=== PATIENT | female | born 1975 | race Caucasian/White ===

== ENCOUNTER 2023-03-13 12:11 | Emergency (ER) | payer OTHER ==
[~2023-03-13] VITALS: Ht 167.6 cm; Wt 81.0 kg
[2023-03-13 13:04] LABS: Urine Bacteria FEW /hpf (None Seen); Urine Blood 1+ /uL (Negative); Urine Specific Gravity 1.019 (1.001-1.035); Urine WBC 1748 /hpf (0 - 5); Urine WBC Clumps PRESENT /hpf (None Seen)
[2023-03-13] MEDS ORDERED: MORPHINE SULFATE 4 MG/ML SYR/VIAL IM ONE (13:45)
[2023-03-13] MEDS ORDERED: SODIUM CHLORIDE 0.9% 1,000 ML IV ONE (13:45)
[2023-03-13] MEDS ORDERED: ONDANSETRON ODT 4 MG TAB PO ONE (13:45)
[2023-03-13 14:09] VITALS: BP 130/74
[2023-03-13 15:18] LABS: Basophils # (auto) 0 10 ^3/uL (0-0.2); Basophils % (auto) 0.6 % (0.0-2.0); Eosinophils # (auto) 0.2 10 ^3/uL (0-0.8); Eosinophils % (auto) 2.6 % (0.0-7.0); Hematocrit 46.2 % (36.0-46.0); Hemoglobin 15.9 g/dL (12.2-16.2); Lymphocytes # (auto) 1.2 10 ^3/uL (0.4-5.4); Lymphocytes % (auto) 14.8 % (10.0-50.0); Mean Corpuscular Hemoglobin 30.6 pg (28.0-32.0); Mean Corpuscular Hgb Conc. 34.5 g/dL (32.0-36.0); Mean Corpuscular Volume 88.6 fL (80.0-100.0); Monocytes # (auto) 0.3 10 ^3/uL (0-1.3); Monocytes % (auto) 4.1 % (0.0-12.0); Neutrophils # (auto) 6.3 10 ^3/uL (1.6-8.6); Neutrophils % (auto) 77.9 % (37.0-80.0); Nucleated Red Blood Cells % 2.4 %; Red Blood Cells 5.21 10^6/uL (4.0-5.20); Red Cell Distribution Width 13.6 % (11.8-14.3); White Blood Cell 8.1 10^3/uL (4.4-10.8)
[2023-03-13 16:28] LABS: Sodium 131 mmol/L (136-145)
[2023-03-13 16:29] LABS: Alanine Aminotransferase 27 U/L (13-56); Alkaline Phosphatase 55 U/L (45-117); Anion Gap 6 (5-15); Aspartate Aminotransferase 21 U/L (15-37); BUN/Creatinine Ratio 17.1 (10.0-20.0); Blood Urea Nitrogen 12 mg/dL (7-18); Carbon Dioxide 21 mmol/L (21-32); Chloride 104 mmol/L (98-107); GFR African American 116 mL/min; GFR Non-African American 96 mL/min; Glucose 264 mg/dL (74-106); Potassium 4.1 mmol/L (3.5-5.1)
[2023-03-13 16:30] LABS: Albumin 3.5 g/dL (3.4-5.0); Bilirubin, Total 0.5 mg/dL (0.2-1.0); Lipase 208 U/L (73-393); Total Protein 6.9 g/dL (6.4-8.2)
[2023-03-13] MEDS ORDERED: ACET-1079 PO ×3 (17:18→18:07)
[2023-03-13] MEDS ORDERED: CEPH500T PO ×3 (17:18→18:07)
== END 2023-03-13 17:24 | disposition home or self-care (01) ==
LOC: ER 12:11
DX: N12 Tubulo-interstitial nephritis, not specified as acute or chronic (principal); Z32.02 Encounter for pregnancy test, result negative
CPT/HCPCS: 36415; 74176; 76705; 80053; 81001; 81025; 83690; 85025; 96360; 96372; 99285; J2270; J7030; Q0162